=== PATIENT | male | born 1975 | race Caucasian/White ===

== ENCOUNTER 2025-03-15 12:56 | Outpatient (CLI) | payer OTHER | END 2025-03-15 12:57 | disposition home or self-care (01) | LOC: SCSULT 12:56 | PROVIDERS: ATTEND Family Medicine | DX: E03.8 Other specified hypothyroidism (principal); E04.2 Nontoxic multinodular goiter; Z85.841 Personal history of malignant neoplasm of brain | CPT/HCPCS: 76536 ==